=== PATIENT | female | born 2000 ===

== ENCOUNTER 2024-06-13 11:16 | Outpatient (REF) | payer MEDICAID, SELFPAY | END 2024-06-13 11:17 | disposition home or self-care (01) | LOC: HO.LNP 11:16 | PROVIDERS: Visit Provider Advanced Practice Midwife | DX: Z13.89 Encounter for screening for other disorder (principal) ==

== ENCOUNTER 2025-01-03 15:44 | Outpatient (AMB) | payer OTHER, SELFPAY ==
[2025-01-03 15:49] VITALS: BP 110/70; PULSE 98; O2SAT 99; BMI 21.0
--- NOTE | 2025-01-03 15:49 | A.OFFPC_ITS ---
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 She reports an increased frequency of migraines, with three episodes this month and a total of four since November. Previously, her migrain es occurred with several months or even a year between episodes. The migraines are preceded by an aura, with headache onset about 30 minutes later. The pain is located on the right side. A recent episode lasted from 11:00 AM to 5:00 PM. The patient tries to sleep for relief, but it has become difficult to fall asleep during an attack. She denies any specific food triggers, as the headaches occur both before and after meals. She also reports that a specialist noted some warmth on palpation of her right parietal area. The patient has a history of seeing a psychiatrist for depression but did not try many medications. She has never been evaluated by a neurologist for her headaches. [facility] Medical History (Updated 01/05/25 @ 13:55 by Annie Zhou MD) Moderate major depression Abnormal uterine bleeding (AUB) Migraine with aura Surgical History No pertinent past surgical history Family History Mother No problems noted. Father SHYAM (obstructive sleep apnea) Social History Housing: House Alcohol intake: never Patient Tobacco Use Status: Never used Tobacco e-Cigarette/Vaping Use: Never Used Second Hand Smoke Exposure: No service: No Current occupational status: employed Current occupation: [employer] Current occupational exposures/hazards: No Cognitive needs: No Hearing needs: No Vision needs: Yes Female Reproductive History Menstrual Age of Menarche: 15 Questionnaire PHQ-9 Over the last 2 weeks, how often have you been bothered by any of the following problems? 1. Little interest or pleasure in doing things: more than half the days 2. Feeling down, depressed, or hopeless: several days 3. Trouble falling or staying asleep, or sleeping too much: several days 4. Feeling tired or having little energy: more than half the days 5. Poor appetite or overeating: several days 6. Feeling bad about yourself - or that you are a failure or have let yourself or your family down: nearly every day 7. Trouble concentrating on things, such as reading the newspaper or watching television: more than half the days 8. Moving or speaking so slowly that other people could have noticed. Or the opposite - being so fidgety or restless that you have been moving around a lot more than usual: several days 9. Thoughts that you would be better off or of hurting yourself in some way: not at all Total score: 13 Depression Screening Interpretation: Positive Depression Screening Follow-up: Existing condition, New Medication prescribed and Follow-up Visit Requested Depression Screening Done: Yes 95183 - PHQ-9 Billing: Yes Source: Developed by Drs. Deric Babb, Belia Ornelas, Too Bingham and colleagues, with an educational nafisa from [employer]. Thrive Questionnaire Date Thrive assessed: 01/03/25 I am a: Patient What is your living situation today?: I have a steady place to live Within the past 12 months, did the food you bought not last and you didn't have the money to get more?: Never true Within the past 12 months, did you worry whether your food would run out before you got money to buy more?: Never true Do you have trouble paying for medicines?: No Do you have trouble getting transportation to medical appointments?: No Do you have trouble paying your heating and electricity bill?: No Do you have trouble taking care of your child, family member or friend?: No Do you have trouble with day-to-day activities such as bathing, preparing meals, shopping, managing finances, etc.?: No Are you currently unemployed and looking for a job?: No Are you interested in more education?: Yes Please select the resources that you would like help with: None Currently or been in a relationship where the following occur: No concerns reported THRIVE Score: 0 AUDIT C Alcohol Use Questionnaire (AUDIT-C) 1. How often do you have a drink containing alcohol?: Never 2. How many drinks containing alcohol do you have on a typical day when you are drinking?: 3 or 4 3. How often do you have six or more drinks on one occasion?: Never Total Score: 1 Score Reviewed/Action Taken: No GABRIEL-7 AMB Questionnaire GABRIEL-7 Date GABRIEL - 7 assessed: 01/03/25 Feeling nervous, anxious, or on edge: 2 = More than half the days Not being able to stop or control worryin = More than half the days Worrying too much about different things: 2 = More than half the days Trouble relaxin = More than half the days Being so restless that it is hard to sit still: 1 = Several days Becoming easily annoyed or irritable: 2 = More than half the days Feeling afraid as if something awful might happen: 2 = More than half the days Total GABRIEL-7 score (0-4 normal; 5-9 mild; 10-14 moderate; 15-21 severe): 13 Source: Developed by Drs. Deric Babb, Belia Ornelas, Too Bingahm and colleagues, with an educational nafisa from [employer]. GABRIEL-7 Assessment Billing GABRIEL-7 Assessment Tool: GABRIEL-7 Assessment 39253 Review of Systems Const All systems reviewed & are unremarkable except as noted in HPI and below Card Denies chest pain at rest, Denies chest pain with activity, Denies edema, Denies irregular heart rhythm, Denies claudication, Denies dyspnea, Denies dyspnea on exertion, Denies orthopnea, Denies paroxysmal nocturnal dyspnea and Denies slow heart rate Resp Denies cough, Denies dyspnea and Denies dyspnea on exertion GI Denies abdominal pain, Denies change in bowel habits, Denies excessive flatus, Denies nausea and Denies vomiting Physical exam (Primary Care) Vital Signs: Last Vital Signs Pulse 98 01/03/25 15:49 BP 110/70 01/03/25 15:49 Pulse Ox 99 01/03/25 15:49 Oxygen Delivery Method Room Air 01/03/25 15:49 BMI result Body Mass Index 21.0 Tobacco/Smoking Status: Tobacco use Status Tobacco use date assessed 01/03/25 01/03/25 15:55 Patient Tobacco Use Status Never used Tobacco 01/03/25 15:55 e-Cigarette/Vaping Use Never Used 01/03/25 15:55 PHQ-9: PHQ-9 Score PHQ-9: Total score 13 01/03/25 16:32 Depression Screening Interpretation: Positive Depression Screening Follow-up: Existing condition, New Medication prescribed and Follow-up Visit Requested Thrive Assessment: Date of Thrive Assessment Date Thrive assessed 01/03/25 01/03/25 15:55 Currently or been in a relationship where the following occur: No concerns reported Resp Effort & Inspection: normal respiratory effort Auscultation: clear to auscultation bilaterally Cardio Jugular venous distension: no JVD Rate: regular rate Rhythm: regular rhythm Heart sounds: S1 normal heart sound present and S2 normal heart sound present Extrem General: Yes full ROM Coding Level of Care Code Est Pt Level 3 (93660) Diagnoses Persistent headaches R51.9 Moderate major depression F32.1 Additional Codes GABRIEL-7 Assessment Billing - GABRIEL-7 Assessment Tool: GABRIEL-7 Assessment 40907 ([id number]) PHQ-9 - 85270 - PHQ-9 Billing: Yes ([id number]) Time Spent (min) 19 Assessment & Plan Assessment & Plan (1) Persistent headaches: Code(s): R51.9 - Headache, unspecified Category: Medical (2) Moderate major depression: Code(s): F32.1 - Major depressive disorder, single episode, moderate Category: Medical Plan Plan 1. Migraine With Intractable Migraine, So Stated, Without Status Migrainosus The patient presents with an increased frequency of migraines, now occurring multiple times a month. Given this change, a head MRI will be ordered to rule out underlying pathology, and a referral will be made to Neurology for further evaluation and management, as they have many other treatment options. For prevention, amitriptyline will be started, which may also help with sleep. 2. Depression The patient has a history of seeing a psychiatrist for depression. The prescribed amitriptyline for migraine prevention was noted to also be beneficial for depression. Orders: Orders MR head/brain wo con 01/03/25 R51.9 - Headache, unspecified Referrals Neurology Referral R51.9 - Headache, unspecified Medications: New amitriptyline 25 mg PO BEDTIME 90 tabs 1RF 90 days
== END 2025-01-03 16:29 | disposition home or self-care (01) ==
LOC: HO.HMCH 15:45
PROVIDERS: PCP Internal Medicine; Visit Provider Internal Medicine
DX: R51.9 Headache, unspecified (principal); F32.1 Major depressive disorder, single episode, moderate

== ENCOUNTER → 2025-01-03 15:44 | Outpatient (BNVA) | payer OTHER, SELFPAY | PROVIDERS: PCP Internal Medicine; Visit Provider Internal Medicine | DX: F32.1 Major depressive disorder, single episode, moderate (principal); G43.909 Migraine, unspecified, not intractable, without status migrainosus | CPT/HCPCS: 96127; 99212 ==